=== PATIENT | male | born 1940 | race Hispanic/Latino ===

== ENCOUNTER 2017-09-01 11:36 | Inpatient (IN) | payer OTHER ==
[~2017-09-01] VITALS: Ht 167.6 cm; Wt 100.8 kg
[~2017-09-01 11:36] MED LIST: ACET1TAB12 PO; AMLO1CAP11 PO; AMLOD; BENAZ; DOCU-275 PO; LEVO500T2 PO
[2017-09-01 12:17] LABS: BASOPHILS % (AUTO) 0.6 % (0.0-5.0); EOSINOPHILS % (AUTO) 2.4 % (0.0-8.0); HEMATOCRIT 49.5 % (42-54); LYMPHOCYTES % (AUTO) 24.6 % (21.0-51.0); MEAN CORPUSCULAR HEMOGLOBIN 31.6 pg (27.0-33.0); MEAN CORPUSCULAR HGB CONC 33.8 g/dL (32.0-36.0); MEAN CORPUSCULAR VOLUME 93.5 fL (79-99); MONOCYTES % (AUTO) 8.1 % (3.0-13.0); NEUTROPHILS % (AUTO) 64.3 % (40.0-77.0); NUCLEATED RED BLOOD CELLS 0.1 % (0.0-0.19); PLATELET COUNT (AUTO) 210 K/uL (130-400); RED CELL DISTRIBUTION WIDTH 13.5 % (11.0-15.5); WHITE BLOOD COUNT (AUTO) 4.8 K/uL (4.8-10.8)
[2017-09-01] MEDS ORDERED: GUAIFENESIN-DM 200/20 MG 10 ML PO PRN (12:30)
[2017-09-01] MEDS ORDERED: MAG HYDROX/AL HYDROX/SIMETH ES 30 ML SUSP UDCUP PO PRN (12:30)
[2017-09-01] MEDS ORDERED: ACETAMINOPHEN 325 MG TAB PO PRN ×2 (12:30)
[2017-09-01] MEDS ORDERED: ACETAMINOPHEN-CODEINE 300/30MG TAB PO PRN (12:30)
[2017-09-01] MEDS ORDERED: LACTULOSE 20 GM/30 ML UDCUP PO PRN (12:30)
[2017-09-01] MEDS ORDERED: ONDANSETRON HCL 4 MG/2 ML VIAL IV PRN (12:30)
[2017-09-01] MEDS ORDERED: NITROGLYCERIN 0.4 MG SL TAB SL PRN (12:30)
[2017-09-01] MEDS ORDERED: MORPHINE SULFATE 2 MG/ML 1ML SYG IV PRN (12:30)
[2017-09-01] MEDS ORDERED: HYDRALAZINE HCL 20 MG/ML VIAL IV PRN (12:30)
[2017-09-01 12:34] LABS: INR 0.93 (0.85-1.15); PARTIAL THROMBOPLASTIN TIME 30.1 SEC (26.3-35.5); POTASSIUM 5.4 mmol/L (3.5-5.1); PROTHROMBIN TIME 9.8 SEC (9.6-11.6)
[2017-09-01 12:43] LABS: ALBUMIN 1.6 g/dL (3.5-5.0); BILIRUBIN,TOTAL 0.4 mg/dL (0.2-1.0); TOTAL PROTEIN, SERUM 5.4 g/dL (6.0-8.3)
[2017-09-01 13:12] LABS: APPEARANCE,URINE Cloudy (CLEAR); BILIRUBIN,URINE Negative (NEGATIVE); COLOR,URINE Dark Yellow (YELLOW); GLUCOSE, URINE (UA) Negative (NEGATIVE); KETONES,URINE Negative (NEGATIVE); LEUKOCYTE ESTERASE ,URINE Negative (NEGATIVE); NITRATE,URINE Negative (NEGATIVE); OCCULT BLOOD,URINE Large (NEGATIVE); PH,URINE 5.5 (5.0-8.0); PROTEIN,URINE >=1000 (NEGATIVE); UROBILINOGEN,URINE 0.2 mg/dL (0.2-1.0)
[2017-09-01 13:32] LABS: BACTERIA,URINE Moderate /HPF (None Seen); SQUAMOUS EPITHELIAL CELL,UR 0-2 /HPF (0-2); WBC,URINE 0-1 /HPF (0-1)
[2017-09-01 16:00] VITALS: BP 138/83
[2017-09-01] MEDS ORDERED: CHOLESTEROL PO (18:55)
[2017-09-01] MEDS ORDERED: FISH1CAP27 PO (18:55)
[2017-09-01] MEDS ORDERED: ASPI-555 PO (18:55)
[2017-09-01 19:45] VITALS: BP 132/80
[2017-09-01] MEDS ORDERED: ATOR10TA69 PO (21:54)
[2017-09-01] MEDS ORDERED: FURO20TA4 PO (21:54)
[2017-09-01 23:38] VITALS: BP 138/83
[2017-09-02 03:48] LABS: HEMATOCRIT 41.1 % (42-54); MEAN CORPUSCULAR HEMOGLOBIN 33.4 pg (27.0-33.0); MEAN CORPUSCULAR HGB CONC 35.9 g/dL (32.0-36.0); MEAN CORPUSCULAR VOLUME 92.9 fL (79-99); NUCLEATED RED BLOOD CELLS 0.1 % (0.0-0.19); PLATELET COUNT (AUTO) 179 K/uL (130-400); RED BLOOD CELL COUNT(AUTO) 4.43 MIL/uL (4.50-6.20); RED CELL DISTRIBUTION WIDTH 13.8 % (11.0-15.5); WHITE BLOOD COUNT (AUTO) 5.1 K/uL (4.8-10.8)
[2017-09-02 04:00] VITALS: BP 130/83
[2017-09-02 04:01] LABS: CREATININE 3.4 mg/dL (0.5-1.5); POTASSIUM 5.4 mmol/L (3.5-5.1)
[2017-09-02 04:55] LABS: ERYTHROCYTE SEDIMENTATION RATE 42 MM/HR (0-15)
[2017-09-02 08:00] VITALS: BP 138/76
[2017-09-02] MEDS ORDERED: AMLODIPINE BESYLATE 5 MG TAB PO SCH (09:00)
[2017-09-02] MEDS ORDERED: SODIUM POLYSTYRENE SULFONATE 15 GM/60 ML ML PO SCH (09:30)
[2017-09-02] MEDS: FISH OIL 1000 MG/CAP PO SCH (10:21)
[2017-09-02] MEDS: ASPIRIN 81 MG EC TAB PO SCH (10:22)
[2017-09-02] MEDS: FAMOTIDINE 20MG TAB 20 MG TAB PO SCH (10:22)
[2017-09-02] MEDS ORDERED: FUROSEMIDE 20 MG TABLET ONE (10:23)
[2017-09-02 11:00] VITALS: BP 132/80
[2017-09-02 16:00] VITALS: BP 149/89
[2017-09-02 19:35] VITALS: BP 139/81
[2017-09-02 23:20] VITALS: BP 144/81
[2017-09-03 03:35] VITALS: BP 150/82
[2017-09-03 05:55] LABS: CREATININE 3.3 mg/dL (0.5-1.5); POTASSIUM 4.4 mmol/L (3.5-5.1)
[2017-09-03 08:00] VITALS: BP 158/97
[2017-09-03] MEDS ORDERED: FUROSEMIDE 20 MG TABLET PO SCH (09:00)
[2017-09-03] MEDS: ASPIRIN 81 MG EC TAB PO SCH (10:16)
[2017-09-03] MEDS: FAMOTIDINE 20MG TAB 20 MG TAB PO SCH (10:16)
[2017-09-03] MEDS: FISH OIL 1000 MG/CAP PO SCH (10:16)
[2017-09-03] MEDS: FUROSEMIDE 10 MG/ML 2ML VIAL IV SCH ×2 (11:49→20:26)
[2017-09-03 12:00] VITALS: BP 145/86
[2017-09-03 15:51] VITALS: BP 135/82
[2017-09-03 19:25] VITALS: BP 143/83
[2017-09-03] MEDS: METOPROLOL TARTRATE 25 MG TAB PO SCH (20:26)
[2017-09-03 23:15] VITALS: BP 129/77
[2017-09-04 03:40] VITALS: BP 137/87
[2017-09-04 05:36] LABS: HEMATOCRIT 45.9 % (42-54); MEAN CORPUSCULAR HEMOGLOBIN 32.7 pg (27.0-33.0); MEAN CORPUSCULAR HGB CONC 35.2 g/dL (32.0-36.0); MEAN CORPUSCULAR VOLUME 92.9 fL (79-99); PLATELET COUNT (AUTO) 205 K/uL (130-400); RED BLOOD CELL COUNT(AUTO) 4.94 MIL/uL (4.50-6.20); RED CELL DISTRIBUTION WIDTH 13.4 % (11.0-15.5); WHITE BLOOD COUNT (AUTO) 4.8 K/uL (4.8-10.8)
[2017-09-04 05:43] LABS: INR 0.98 (0.85-1.15); PARTIAL THROMBOPLASTIN TIME 31.7 SEC (26.3-35.5); PROTHROMBIN TIME 10.3 SEC (9.6-11.6)
[2017-09-04 05:46] LABS: ALBUMIN 1.3 g/dL (3.5-5.0); MAGNESIUM 2.9 mg/dL (1.80-2.40); PHOSPHORUS 6.6 mg/dL (2.5-4.9); URIC ACID 8.8 mg/dL (2.6-7.2)
[2017-09-04 07:45] VITALS: BP 141/71
[2017-09-04] MEDS: METOPROLOL TARTRATE 25 MG TAB PO SCH ×2 (08:56→21:03)
[2017-09-04] MEDS: FOLIC ACID/VITAMIN B COMP W-C 1 MG CAPSULE PO SCH (08:56)
[2017-09-04] MEDS: FUROSEMIDE 10 MG/ML 2ML VIAL IV SCH ×2 (08:57→21:03)
[2017-09-04] MEDS: ASPIRIN 81 MG EC TAB PO SCH (08:57)
[2017-09-04] MEDS: FAMOTIDINE 20MG TAB 20 MG TAB PO SCH (08:57)
[2017-09-04] MEDS: FISH OIL 1000 MG/CAP PO SCH (08:57)
[2017-09-04 11:56] VITALS: BP 141/86
[2017-09-04 15:32] LABS: COLLECTION PERIOD,URINE 24 HR
[2017-09-04 15:33] LABS: TOTAL VOLUME 24HRS,URINE 400 mL; TPROTEIN TIMED,URINE 3251 mg/dL; TPROTEIN U,24HR CALC 13004 mg/24HR (0-165)
[2017-09-04 16:00] VITALS: BP 149/86
[2017-09-04 19:19] VITALS: BP 153/90
[2017-09-04 23:33] VITALS: BP 147/85
[2017-09-05 04:00] VITALS: BP 134/76
[2017-09-05 04:10] LABS: HEMATOCRIT 43.8 % (42-54); MEAN CORPUSCULAR HEMOGLOBIN 32.4 pg (27.0-33.0); MEAN CORPUSCULAR HGB CONC 34.9 g/dL (32.0-36.0); MEAN CORPUSCULAR VOLUME 92.9 fL (79-99); NUCLEATED RED BLOOD CELLS 0.1 % (0.0-0.19); PLATELET COUNT (AUTO) 197 K/uL (130-400); RED BLOOD CELL COUNT(AUTO) 4.72 MIL/uL (4.50-6.20); RED CELL DISTRIBUTION WIDTH 13.3 % (11.0-15.5); WHITE BLOOD COUNT (AUTO) 5.3 K/uL (4.8-10.8)
[2017-09-05 04:16] LABS: CREATININE 4.5 mg/dL (0.5-1.5); POTASSIUM 4.6 mmol/L (3.5-5.1)
[2017-09-05 08:00] VITALS: BP 151/89
[2017-09-05 08:03] LABS: HEPATITIS A ANTIBODY IGM Negative (Negative); HEPATITIS B CORE IGM Negative (Negative); HEPATITIS Bs ANTIGEN SCREEN P Negative (Negative)
[2017-09-05] MEDS: METOPROLOL TARTRATE 25 MG TAB PO SCH ×2 (09:10→21:09)
[2017-09-05] MEDS: FOLIC ACID/VITAMIN B COMP W-C 1 MG CAPSULE PO SCH (09:10)
[2017-09-05] MEDS: FISH OIL 1000 MG/CAP PO SCH (09:10)
[2017-09-05] MEDS: FAMOTIDINE 20MG TAB 20 MG TAB PO SCH (09:10)
[2017-09-05] MEDS: ASPIRIN 81 MG EC TAB PO SCH (09:11)
[2017-09-05] MEDS: FUROSEMIDE 10 MG/ML 2ML VIAL IV SCH ×2 (09:11→21:09)
[2017-09-05 12:00] VITALS: BP 141/77
[2017-09-05 16:00] VITALS: BP 143/78
[2017-09-05 19:00] VITALS: BP 150/88
[2017-09-05 23:00] VITALS: BP 140/82
[2017-09-06] VITALS (12 sets, daily range): BP systolic 127–142; BP diastolic 76–93
[2017-09-06 04:26] LABS: INR 0.96 (0.85-1.15); PARTIAL THROMBOPLASTIN TIME 32.4 SEC (26.3-35.5); PROTHROMBIN TIME 10.1 SEC (9.6-11.6)
[2017-09-06 04:35] LABS: ALBUMIN 1.1 g/dL (3.5-5.0); BILIRUBIN,TOTAL 0.3 mg/dL (0.2-1.0); CREATININE 4.9 mg/dL (0.5-1.5); POTASSIUM 4.5 mmol/L (3.5-5.1); TOTAL PROTEIN, SERUM 4.4 g/dL (6.0-8.3)
[2017-09-06] MEDS: METOPROLOL TARTRATE 25 MG TAB PO SCH ×2 (07:38→21:14)
[2017-09-06] MEDS: FUROSEMIDE 10 MG/ML 2ML VIAL IV SCH ×2 (09:30→21:12)
[2017-09-06] MEDS: FAMOTIDINE 20MG TAB 20 MG TAB PO SCH (17:07)
[2017-09-06] MEDS: FOLIC ACID/VITAMIN B COMP W-C 1 MG CAPSULE PO SCH (17:07)
[2017-09-06] MEDS: FISH OIL 1000 MG/CAP PO SCH (17:07)
[2017-09-07] VITALS: BP 122/65
[2017-09-07 04:00] VITALS: BP 146/80
[2017-09-07 04:06] LABS: HEMATOCRIT 43.1 % (42-54); MEAN CORPUSCULAR HEMOGLOBIN 32.8 pg (27.0-33.0); MEAN CORPUSCULAR HGB CONC 35.7 g/dL (32.0-36.0); MEAN CORPUSCULAR VOLUME 91.8 fL (79-99); NUCLEATED RED BLOOD CELLS 0.1 % (0.0-0.19); PLATELET COUNT (AUTO) 225 K/uL (130-400); RED CELL DISTRIBUTION WIDTH 13.3 % (11.0-15.5); WHITE BLOOD COUNT (AUTO) 5.2 K/uL (4.8-10.8)
[2017-09-07 04:16] LABS: POTASSIUM 4.7 mmol/L (3.5-5.1)
[2017-09-07 08:00] VITALS: BP 154/81
[2017-09-07] MEDS: FOLIC ACID/VITAMIN B COMP W-C 1 MG CAPSULE PO SCH (09:10)
[2017-09-07] MEDS: FISH OIL 1000 MG/CAP PO SCH (09:11)
[2017-09-07] MEDS: METOPROLOL TARTRATE 25 MG TAB PO SCH ×2 (09:11→21:00)
[2017-09-07] MEDS: FAMOTIDINE 20MG TAB 20 MG TAB PO SCH (09:12)
[2017-09-07] MEDS: FUROSEMIDE 10 MG/ML 2ML VIAL IV SCH ×2 (09:12→21:30)
[2017-09-07 11:00] VITALS: BP 154/83
[2017-09-07 16:00] VITALS: BP 142/84
[2017-09-07 20:00] VITALS: BP 144/82
[2017-09-08] VITALS (7 sets, daily range): BP systolic 136–158; BP diastolic 77–91
[2017-09-08] MEDS: METOPROLOL TARTRATE 25 MG TAB PO SCH ×2 (08:33→20:26)
[2017-09-08] MEDS: FISH OIL 1000 MG/CAP PO SCH (08:33)
[2017-09-08] MEDS: FOLIC ACID/VITAMIN B COMP W-C 1 MG CAPSULE PO SCH (08:33)
[2017-09-08] MEDS: FAMOTIDINE 20MG TAB 20 MG TAB PO SCH (08:34)
[2017-09-08] MEDS: FUROSEMIDE 10 MG/ML 2ML VIAL IV SCH (08:34)
[2017-09-08] MEDS: PREDNISONE 20 MG TABLET PO SCH ×2 (14:26→20:26)
[2017-09-08] MEDS: FUROSEMIDE 40 MG TABLET PO SCH (18:01)
[2017-09-09 03:24] LABS: HEMATOCRIT 44.2 % (42-54); MEAN CORPUSCULAR HEMOGLOBIN 33.1 pg (27.0-33.0); MEAN CORPUSCULAR HGB CONC 36.5 g/dL (32.0-36.0); MEAN CORPUSCULAR VOLUME 90.8 fL (79-99); PLATELET COUNT (AUTO) 231 K/uL (130-400); RED BLOOD CELL COUNT(AUTO) 4.87 MIL/uL (4.50-6.20); RED CELL DISTRIBUTION WIDTH 13.4 % (11.0-15.5); WHITE BLOOD COUNT (AUTO) 2.8 K/uL (4.8-10.8)
[2017-09-09 03:34] LABS: CREATININE 5.9 mg/dL (0.5-1.5); POTASSIUM 4.8 mmol/L (3.5-5.1)
[2017-09-09 03:42] LABS: LYMPHOCYTES % (MANUAL) 16 % (22-44); SEGMENTED NEUTROPHILS % 84 % (40-70)
[2017-09-09 03:43] LABS: MAN.DIFF COMMENT-IMPRESSION MANUAL DIFFERENTIAL; PLATELET MORPHOLOGY COMMENT ADEQUATE
[2017-09-09 04:45] VITALS: BP 131/69
[2017-09-09 08:49] VITALS: BP 155/85
[2017-09-09] MEDS: FISH OIL 1000 MG/CAP PO SCH (09:49)
[2017-09-09] MEDS: PREDNISONE 20 MG TABLET PO SCH ×2 (09:49→20:22)
[2017-09-09] MEDS: FOLIC ACID/VITAMIN B COMP W-C 1 MG CAPSULE PO SCH (09:49)
[2017-09-09] MEDS: METOPROLOL TARTRATE 25 MG TAB PO SCH ×2 (09:49→20:22)
[2017-09-09] MEDS: FAMOTIDINE 20MG TAB 20 MG TAB PO SCH (09:49)
[2017-09-09] MEDS: FUROSEMIDE 40 MG TABLET PO SCH ×2 (09:50→19:28)
[2017-09-09 11:27] VITALS: BP 146/72
[2017-09-09 16:10] VITALS: BP 144/81
[2017-09-09 19:55] VITALS: BP 137/76
[2017-09-09 23:05] VITALS: BP 143/83
[2017-09-10 03:54] VITALS: BP 132/73
[2017-09-10 05:55] LABS: BASOPHILS % (AUTO) 0.1 % (0.0-5.0); HEMATOCRIT 41.8 % (42-54); MEAN CORPUSCULAR HEMOGLOBIN 31.7 pg (27.0-33.0); MEAN CORPUSCULAR HGB CONC 34.3 g/dL (32.0-36.0); MEAN CORPUSCULAR VOLUME 92.5 fL (79-99); MONOCYTES % (AUTO) 1.2 % (3.0-13.0); NEUTROPHILS % (AUTO) 87.7 % (40.0-77.0); PLATELET COUNT (AUTO) 242 K/uL (130-400); RED BLOOD CELL COUNT(AUTO) 4.52 MIL/uL (4.50-6.20); RED CELL DISTRIBUTION WIDTH 13.5 % (11.0-15.5); WHITE BLOOD COUNT (AUTO) 6.6 K/uL (4.8-10.8)
[2017-09-10 06:04] LABS: CREATININE 7.4 mg/dL (0.5-1.5); POTASSIUM 4.9 mmol/L (3.5-5.1)
[2017-09-10 07:54] VITALS: BP 140/75
[2017-09-10] MEDS: PREDNISONE 20 MG TABLET PO SCH ×2 (08:01→20:25)
[2017-09-10] MEDS: METOPROLOL TARTRATE 25 MG TAB PO SCH ×2 (08:02→20:25)
[2017-09-10] MEDS: FISH OIL 1000 MG/CAP PO SCH (08:02)
[2017-09-10] MEDS: FAMOTIDINE 20MG TAB 20 MG TAB PO SCH (08:02)
[2017-09-10] MEDS: FUROSEMIDE 40 MG TABLET PO SCH ×2 (08:02→16:41)
[2017-09-10] MEDS: FOLIC ACID/VITAMIN B COMP W-C 1 MG CAPSULE PO SCH (08:02)
[2017-09-10 11:16] VITALS: BP 140/79
[2017-09-10 16:19] VITALS: BP 132/70
[2017-09-10 20:00] VITALS: BP 140/76
[2017-09-11] VITALS: BP 120/68
[2017-09-11 04:00] VITALS: BP 118/70
[2017-09-11 05:10] LABS: HEMATOCRIT 40.5 % (42-54); MEAN CORPUSCULAR HEMOGLOBIN 32.8 pg (27.0-33.0); MEAN CORPUSCULAR HGB CONC 35.4 g/dL (32.0-36.0); MEAN CORPUSCULAR VOLUME 92.7 fL (79-99); PLATELET COUNT (AUTO) 255 K/uL (130-400); RED BLOOD CELL COUNT(AUTO) 4.37 MIL/uL (4.50-6.20); RED CELL DISTRIBUTION WIDTH 13.5 % (11.0-15.5); WHITE BLOOD COUNT (AUTO) 7.3 K/uL (4.8-10.8)
[2017-09-11 05:23] LABS: INR 0.97 (0.85-1.15); PARTIAL THROMBOPLASTIN TIME 31.2 SEC (26.3-35.5); PROTHROMBIN TIME 10.2 SEC (9.6-11.6)
[2017-09-11 05:34] LABS: PHOSPHORUS 11.6 mg/dL (2.5-4.9); POTASSIUM 5.1 mmol/L (3.5-5.1)
[2017-09-11 05:36] LABS: CREATININE 8.6 mg/dL (0.5-1.5)
[2017-09-11 05:44] LABS: LYMPHOCYTES % (MANUAL) 9 % (22-44); SEGMENTED NEUTROPHILS % 91 % (40-70)
[2017-09-11 05:45] LABS: MAN.DIFF COMMENT-IMPRESSION MANUAL DIFFERENTIAL
[2017-09-11 08:00] VITALS: BP 145/73
[2017-09-11] MEDS: FAMOTIDINE 20MG TAB 20 MG TAB PO SCH (08:46)
[2017-09-11] MEDS: FISH OIL 1000 MG/CAP PO SCH (08:46)
[2017-09-11] MEDS: FUROSEMIDE 40 MG TABLET PO SCH ×2 (08:47→17:29)
[2017-09-11] MEDS: PREDNISONE 20 MG TABLET PO SCH ×2 (08:47→20:28)
[2017-09-11] MEDS: METOPROLOL TARTRATE 25 MG TAB PO SCH ×2 (08:47→20:29)
[2017-09-11] MEDS: FOLIC ACID/VITAMIN B COMP W-C 1 MG CAPSULE PO SCH (08:47)
[2017-09-11] MEDS: ONDANSETRON HCL MDV 20ML 2 MG/ML VIAL IV PRN (10:34)
[2017-09-11 11:21] VITALS: BP 139/71
[2017-09-11 16:00] VITALS: BP 133/78
[2017-09-11 20:00] VITALS: BP 134/66
[2017-09-12] VITALS (14 sets, daily range): BP systolic 134–166; BP diastolic 67–97
[2017-09-12 03:58] LABS: HEMATOCRIT 38.5 % (42-54); MEAN CORPUSCULAR HEMOGLOBIN 32.4 pg (27.0-33.0); MEAN CORPUSCULAR HGB CONC 35.4 g/dL (32.0-36.0); MEAN CORPUSCULAR VOLUME 91.6 fL (79-99); PLATELET COUNT (AUTO) 226 K/uL (130-400); RED BLOOD CELL COUNT(AUTO) 4.21 MIL/uL (4.50-6.20); RED CELL DISTRIBUTION WIDTH 13.2 % (11.0-15.5); WHITE BLOOD COUNT (AUTO) 5.7 K/uL (4.8-10.8)
[2017-09-12 04:04] LABS: PARTIAL THROMBOPLASTIN TIME 30.8 SEC (26.3-35.5); PROTHROMBIN TIME 10.5 SEC (9.6-11.6)
[2017-09-12 04:06] LABS: BAND NEUTROPHILS % (MANUAL) 3 % (0-2); EOSINOPHILS % (MANUAL) 1 % (1-6); LYMPHOCYTES % (MANUAL) 4 % (22-44); MAN.DIFF COMMENT-IMPRESSION MANUAL DIFFERENTIAL; PLATELET MORPHOLOGY COMMENT ADEQUATE; SEGMENTED NEUTROPHILS % 92 % (40-70)
[2017-09-12 04:20] LABS: ALBUMIN 1.5 g/dL (3.5-5.0); BILIRUBIN,TOTAL 0.4 mg/dL (0.2-1.0); POTASSIUM 5.9 mmol/L (3.5-5.1); TOTAL PROTEIN, SERUM 4.7 g/dL (6.0-8.3)
[2017-09-12 04:22] LABS: CREATININE 9.8 mg/dL (0.5-1.5)
[2017-09-12] MEDS ORDERED: PANTOPRAZOLE 40 MG/VIAL IVP SCH (09:00)
[2017-09-12] MEDS: METOPROLOL TARTRATE 25 MG TAB PO SCH ×2 (09:57→20:02)
[2017-09-12] MEDS: FISH OIL 1000 MG/CAP PO SCH (09:57)
[2017-09-12] MEDS: FUROSEMIDE 40 MG TABLET PO SCH ×2 (09:58→17:00)
[2017-09-12] MEDS: PREDNISONE 20 MG TABLET PO SCH ×2 (09:59→20:02)
[2017-09-12] MEDS: PANTOPRAZOLE SODIUM 40 MG TABLET.DR PO SCH (09:59)
[2017-09-12] MEDS: FOLIC ACID/VITAMIN B COMP W-C 1 MG CAPSULE PO SCH (09:59)
[2017-09-12] MEDS ORDERED: SODIUM BICARB 50MEQ 50ML VIAL ONE (14:43)
[2017-09-12] MEDS ORDERED: LIDOCAINE HCL 1% MDV 50ML VIAL ONE (14:44)
[2017-09-12] MEDS ORDERED: ISOVUE-370 50ML VIAL IV ONE (14:44)
[2017-09-12] MEDS ORDERED: LIDOCAINE HCL 2% 20ML ONE (14:46)
[2017-09-12] MEDS ORDERED: SODIUM CHLORIDE 0.9% 1000ML 1,000 ML IV PRN (16:45)
[2017-09-12] MEDS ORDERED: 0.9% SODIUM CHLORIDE 250 ML IV BAG IV PRN (16:45)
[2017-09-12] MEDS ORDERED: ALBUMIN (HUMAN) 25% 100 ML IV PRN (16:45)
[2017-09-12 17:00] LABS: HEMATOCRIT 38.8 % (42-54)
[2017-09-12 17:14] LABS: HEMOGLOBIN A1C 5.9 % (4.0-6.0)
[2017-09-12 17:22] LABS: ALBUMIN 1.5 g/dL (3.5-5.0)
[2017-09-12] MEDS: HEPARIN SODIUM 5000UNIT/ML 1ML VIAL IJ PRN (18:22)
[2017-09-12] MEDS: ONDANSETRON HCL MDV 20ML 2 MG/ML VIAL IV PRN (20:02)
[2017-09-13 04:05] VITALS: BP 155/90
[2017-09-13 04:28] LABS: HEMATOCRIT 37.6 % (42-54); MEAN CORPUSCULAR HEMOGLOBIN 32.9 pg (27.0-33.0); MEAN CORPUSCULAR HGB CONC 35.9 g/dL (32.0-36.0); MEAN CORPUSCULAR VOLUME 91.7 fL (79-99); PLATELET COUNT (AUTO) 193 K/uL (130-400); RED CELL DISTRIBUTION WIDTH 13.1 % (11.0-15.5); WHITE BLOOD COUNT (AUTO) 5.9 K/uL (4.8-10.8)
[2017-09-13 04:53] LABS: ALBUMIN 1.4 g/dL (3.5-5.0); BILIRUBIN,TOTAL 0.5 mg/dL (0.2-1.0); POTASSIUM 5.8 mmol/L (3.5-5.1); TOTAL PROTEIN, SERUM 4.6 g/dL (6.0-8.3)
[2017-09-13 05:02] LABS: CREATININE 9.8 mg/dL (0.5-1.5)
[2017-09-13] MEDS: PANTOPRAZOLE SODIUM 40 MG TABLET.DR PO SCH (06:37)
[2017-09-13 08:00] VITALS: BP 142/82
[2017-09-13] MEDS: FOLIC ACID/VITAMIN B COMP W-C 1 MG CAPSULE PO SCH (10:19)
[2017-09-13] MEDS: PREDNISONE 20 MG TABLET PO SCH ×2 (10:19→20:48)
[2017-09-13] MEDS: METOPROLOL TARTRATE 25 MG TAB PO SCH ×2 (10:19→20:50)
[2017-09-13] MEDS: FUROSEMIDE 40 MG TABLET PO SCH ×2 (10:19→16:53)
[2017-09-13] MEDS: FISH OIL 1000 MG/CAP PO SCH (10:19)
[2017-09-13] MEDS: ONDANSETRON HCL MDV 20ML 2 MG/ML VIAL IV PRN ×2 (10:24→23:03)
[2017-09-13 11:47] VITALS: BP 152/90
[2017-09-13 16:00] VITALS: BP 153/79
[2017-09-13 20:45] VITALS: BP 144/77
[2017-09-13 23:45] VITALS: BP 141/67
[2017-09-14 03:20] VITALS: BP 153/77
[2017-09-14 04:30] LABS: HEMATOCRIT 35.9 % (42-54); MEAN CORPUSCULAR HEMOGLOBIN 32.4 pg (27.0-33.0); MEAN CORPUSCULAR HGB CONC 35.3 g/dL (32.0-36.0); MEAN CORPUSCULAR VOLUME 91.8 fL (79-99); PLATELET COUNT (AUTO) 144 K/uL (130-400); RED BLOOD CELL COUNT(AUTO) 3.91 MIL/uL (4.50-6.20); RED CELL DISTRIBUTION WIDTH 13.4 % (11.0-15.5); WHITE BLOOD COUNT (AUTO) 4.2 K/uL (4.8-10.8)
[2017-09-14 04:44] LABS: POTASSIUM 5.8 mmol/L (3.5-5.1)
[2017-09-14 04:48] LABS: CREATININE 8.6 mg/dL (0.5-1.5)
[2017-09-14 07:35] LABS: HEPATITIS Bs ANTIGEN SCREEN P Negative (Negative)
[2017-09-14 08:00] VITALS: BP 132/69
[2017-09-14] MEDS ORDERED: ENOXAPARIN SODIUM 30 MG/0.3 ML SQ SCH (09:00)
[2017-09-14 12:00] VITALS: BP_SYST 151; BP_SYST 152; BP_DIAS 74; BP_DIAS 75
[2017-09-14] MEDS: METOPROLOL TARTRATE 25 MG TAB PO SCH (13:19)
[2017-09-14] MEDS: FISH OIL 1000 MG/CAP PO SCH (13:19)
[2017-09-14] MEDS: FOLIC ACID/VITAMIN B COMP W-C 1 MG CAPSULE PO SCH (13:19)
[2017-09-14] MEDS: PREDNISONE 20 MG TABLET PO SCH ×2 (13:20→20:09)
[2017-09-14] MEDS: FUROSEMIDE 40 MG TABLET PO SCH ×2 (13:20→17:15)
[2017-09-14] MEDS: PANTOPRAZOLE SODIUM 40 MG TABLET.DR PO SCH (13:20)
[2017-09-14 16:00] VITALS: BP 147/77
[2017-09-14 19:35] VITALS: BP 139/76
[2017-09-14 23:18] VITALS: BP 97/78
[2017-09-15 03:39] LABS: BASOPHILS % (AUTO) 0.1 % (0.0-5.0); HEMATOCRIT 33.6 % (42-54); LYMPHOCYTES % (AUTO) 8.5 % (21.0-51.0); MEAN CORPUSCULAR HEMOGLOBIN 33.6 pg (27.0-33.0); MEAN CORPUSCULAR HGB CONC 36.8 g/dL (32.0-36.0); MEAN CORPUSCULAR VOLUME 91.3 fL (79-99); NEUTROPHILS % (AUTO) 87.4 % (40.0-77.0); PLATELET COUNT (AUTO) 113 K/uL (130-400); RED BLOOD CELL COUNT(AUTO) 3.68 MIL/uL (4.50-6.20); RED CELL DISTRIBUTION WIDTH 13.4 % (11.0-15.5); WHITE BLOOD COUNT (AUTO) 5.2 K/uL (4.8-10.8)
[2017-09-15 03:48] VITALS: BP 136/67
[2017-09-15 03:49] LABS: POTASSIUM 5.5 mmol/L (3.5-5.1)
[2017-09-15 04:25] LABS: CREATININE 8.1 mg/dL (0.5-1.5)
[2017-09-15 08:00] VITALS: BP 157/83
[2017-09-15] MEDS ORDERED: PHARMACY COMMUNICATION MISC SCH (09:00)
[2017-09-15] MEDS: PREDNISONE 20 MG TABLET PO SCH ×2 (10:59→21:34)
[2017-09-15] MEDS: FISH OIL 1000 MG/CAP PO SCH (10:59)
[2017-09-15] MEDS: PANTOPRAZOLE SODIUM 40 MG TABLET.DR PO SCH (10:59)
[2017-09-15] MEDS: FOLIC ACID/VITAMIN B COMP W-C 1 MG CAPSULE PO SCH (10:59)
[2017-09-15 12:00] VITALS: BP 163/87
[2017-09-15] MEDS: FUROSEMIDE 40 MG TABLET PO SCH ×2 (13:43→17:16)
[2017-09-15 16:00] VITALS: BP 147/81
[2017-09-15 19:00] VITALS: BP 144/78
[2017-09-16] VITALS: BP 132/73
[2017-09-16 04:00] VITALS: BP 145/69
[2017-09-16 04:28] LABS: HEMATOCRIT 36.5 % (42-54); MEAN CORPUSCULAR HEMOGLOBIN 32.3 pg (27.0-33.0); MEAN CORPUSCULAR HGB CONC 35.2 g/dL (32.0-36.0); MEAN CORPUSCULAR VOLUME 91.7 fL (79-99); PLATELET COUNT (AUTO) 122 K/uL (130-400); RED BLOOD CELL COUNT(AUTO) 3.98 MIL/uL (4.50-6.20); RED CELL DISTRIBUTION WIDTH 13.2 % (11.0-15.5); WHITE BLOOD COUNT (AUTO) 7.3 K/uL (4.8-10.8)
[2017-09-16 04:55] LABS: PHOSPHORUS 10.7 mg/dL (2.5-4.9); POTASSIUM 5.7 mmol/L (3.5-5.1)
[2017-09-16 05:05] LABS: CREATININE 8.8 mg/dL (0.5-1.5)
[2017-09-16 08:00] VITALS: BP 161/99
[2017-09-16] MEDS: PANTOPRAZOLE SODIUM 40 MG TABLET.DR PO SCH (08:04)
[2017-09-16] MEDS: AMLODIPINE BESYLATE 5 MG TAB PO SCH (09:00)
[2017-09-16] MEDS ORDERED: AMLODIPINE BESYLATE 5 MG TAB PO ONE (09:36)
[2017-09-16] MEDS: PREDNISONE 20 MG TABLET PO SCH ×2 (09:39→20:52)
[2017-09-16] MEDS: FISH OIL 1000 MG/CAP PO SCH (09:39)
[2017-09-16] MEDS: FUROSEMIDE 40 MG TABLET PO SCH ×2 (09:39→18:00)
[2017-09-16] MEDS: FOLIC ACID/VITAMIN B COMP W-C 1 MG CAPSULE PO SCH (09:39)
[2017-09-16 12:00] VITALS: BP 158/85
[2017-09-16 16:00] VITALS: BP 146/72
[2017-09-16 19:57] VITALS: BP 153/79
[2017-09-17] VITALS (7 sets, daily range): BP systolic 130–161; BP diastolic 67–91
[2017-09-17] MEDS: PANTOPRAZOLE SODIUM 40 MG TABLET.DR PO SCH (08:47)
[2017-09-17] MEDS: FISH OIL 1000 MG/CAP PO SCH (08:47)
[2017-09-17] MEDS: PREDNISONE 20 MG TABLET PO SCH ×2 (08:47→20:26)
[2017-09-17] MEDS: FOLIC ACID/VITAMIN B COMP W-C 1 MG CAPSULE PO SCH (08:47)
[2017-09-17] MEDS: AMLODIPINE BESYLATE 5 MG TAB PO SCH (08:47)
[2017-09-17] MEDS: FUROSEMIDE 40 MG TABLET PO SCH ×2 (08:48→18:37)
[2017-09-18] VITALS (7 sets, daily range): BP systolic 126–165; BP diastolic 72–89
[2017-09-18] MEDS: PANTOPRAZOLE SODIUM 40 MG TABLET.DR PO SCH (05:30)
[2017-09-18 05:53] LABS: HEMATOCRIT 36.4 % (42-54); MEAN CORPUSCULAR HEMOGLOBIN 32.2 pg (27.0-33.0); MEAN CORPUSCULAR VOLUME 92.1 fL (79-99); PLATELET COUNT (AUTO) 111 K/uL (130-400); RED BLOOD CELL COUNT(AUTO) 3.95 MIL/uL (4.50-6.20); RED CELL DISTRIBUTION WIDTH 12.9 % (11.0-15.5); WHITE BLOOD COUNT (AUTO) 8.8 K/uL (4.8-10.8)
[2017-09-18 06:14] LABS: PHOSPHORUS 9.2 mg/dL (2.5-4.9); POTASSIUM 5.5 mmol/L (3.5-5.1)
[2017-09-18 06:24] LABS: CREATININE 8.5 mg/dL (0.5-1.5)
[2017-09-18] MEDS ORDERED: AMLO5TAB4 PO (07:36)
[2017-09-18 07:49] LABS: LYMPHOCYTES % (MANUAL) 6 % (22-44); MAN.DIFF COMMENT-IMPRESSION MANUAL DIFFERENTIAL; MONOCYTES % (MANUAL) 2 % (2-9); PLATELET MORPHOLOGY COMMENT SLIGHTLY DECREASED; SEGMENTED NEUTROPHILS % 92 % (40-70)
[2017-09-18] MEDS: PREDNISONE 20 MG TABLET PO SCH ×2 (09:30→21:03)
[2017-09-18] MEDS: FISH OIL 1000 MG/CAP PO SCH (09:30)
[2017-09-18] MEDS: FOLIC ACID/VITAMIN B COMP W-C 1 MG CAPSULE PO SCH (09:30)
[2017-09-18] MEDS: FUROSEMIDE 40 MG TABLET PO SCH ×2 (09:30→15:13)
[2017-09-18] MEDS: AMLODIPINE BESYLATE 5 MG TAB PO SCH (09:30)
[2017-09-18] MEDS ORDERED: FUROSEMIDE 80 MG TABLET ONE (15:04)
[2017-09-18] MEDS: CALCIUM ACETATE 667 MG CAPSULE PO SCH (15:11)
[2017-09-19 03:00] VITALS: BP 149/80
[2017-09-19 08:00] VITALS: BP 145/79
[2017-09-19] MEDS: PREDNISONE 20 MG TABLET PO SCH ×2 (09:55→20:33)
[2017-09-19] MEDS: FUROSEMIDE 40 MG TABLET PO SCH ×2 (09:56→16:20)
[2017-09-19] MEDS: PANTOPRAZOLE SODIUM 40 MG TABLET.DR PO SCH (10:00)
[2017-09-19] MEDS: CALCIUM ACETATE 667 MG CAPSULE PO SCH ×2 (10:01→10:18)
[2017-09-19] MEDS: FOLIC ACID/VITAMIN B COMP W-C 1 MG CAPSULE PO SCH (10:19)
[2017-09-19] MEDS: AMLODIPINE BESYLATE 5 MG TAB PO SCH (10:19)
[2017-09-19] MEDS: FISH OIL 1000 MG/CAP PO SCH (10:19)
[2017-09-19 12:00] VITALS: BP 136/73
[2017-09-19] MEDS: HEPARIN SODIUM 5000UNIT/ML 1ML VIAL IJ PRN (12:38)
[2017-09-19 16:00] VITALS: BP 140/67
[2017-09-19 19:00] VITALS: BP 145/70
[2017-09-19 23:00] VITALS: BP 147/70
[2017-09-20 03:00] VITALS: BP 136/79
[2017-09-20 04:40] LABS: HEMATOCRIT 35.4 % (42-54); MEAN CORPUSCULAR HEMOGLOBIN 32.8 pg (27.0-33.0); MEAN CORPUSCULAR HGB CONC 35.7 g/dL (32.0-36.0); PLATELET COUNT (AUTO) 113 K/uL (130-400); RED BLOOD CELL COUNT(AUTO) 3.85 MIL/uL (4.50-6.20); RED CELL DISTRIBUTION WIDTH 13.1 % (11.0-15.5); WHITE BLOOD COUNT (AUTO) 8.5 K/uL (4.8-10.8)
[2017-09-20 04:51] LABS: ALBUMIN 1.5 g/dL (3.5-5.0); BILIRUBIN,TOTAL 0.5 mg/dL (0.2-1.0); CREATININE 7.5 mg/dL (0.5-1.5); POTASSIUM 5.4 mmol/L (3.5-5.1); TOTAL PROTEIN, SERUM 4.5 g/dL (6.0-8.3)
[2017-09-20] MEDS: PANTOPRAZOLE SODIUM 40 MG TABLET.DR PO SCH (06:36)
[2017-09-20 07:35] VITALS: BP 148/76
[2017-09-20] MEDS: FOLIC ACID/VITAMIN B COMP W-C 1 MG CAPSULE PO SCH (08:54)
[2017-09-20] MEDS: CALCIUM ACETATE 667 MG CAPSULE PO SCH ×2 (08:54→16:54)
[2017-09-20] MEDS: FUROSEMIDE 40 MG TABLET PO SCH ×2 (08:54→16:55)
[2017-09-20] MEDS: PREDNISONE 20 MG TABLET PO SCH (08:54)
[2017-09-20] MEDS: AMLODIPINE BESYLATE 5 MG TAB PO SCH (08:54)
[2017-09-20] MEDS: FISH OIL 1000 MG/CAP PO SCH (08:55)
[2017-09-20 11:00] VITALS: BP 151/80
[2017-09-20 15:00] VITALS: BP 139/73
== END 2017-09-20 18:13 | disposition home or self-care (01) | DRG 673 ==
LOC: EDH 11:36 → EDHIP 11:37 → OBSVTOIN 11:37 → EDHIP 14:09 → 3AH 16:12
PROVIDERS: ADMIT Internal Medicine; ATTEND Internal Medicine
PROC: 0TB03ZX Excision of Right Kidney, Percutaneous Approach, Diagnostic (ICD-10-PCS; principal; 2017-09-06)
PROC: 0TB13ZX Excision of Left Kidney, Percutaneous Approach, Diagnostic (ICD-10-PCS; 2017-09-06)
PROC: 0JH63XZ Insertion of Tunneled Vascular Access Device into Chest Subcutaneous Tissue and Fascia, Percutaneous Approach (ICD-10-PCS; 2017-09-12)
PROC: 02H633Z Insertion of Infusion Device into Right Atrium, Percutaneous Approach (ICD-10-PCS; 2017-09-12)
PROC: 5A1D70Z Performance of Urinary Filtration, Intermittent, Less than 6 Hours Per Day (ICD-10-PCS; 2017-09-12)
PROC: B244ZZZ Ultrasonography of Right Heart (ICD-10-PCS; 2017-09-12)
PROC: 5A1D70Z Performance of Urinary Filtration, Intermittent, Less than 6 Hours Per Day (ICD-10-PCS; 2017-09-13)
PROC: 5A1D70Z Performance of Urinary Filtration, Intermittent, Less than 6 Hours Per Day (ICD-10-PCS; 2017-09-14)
PROC: 5A1D70Z Performance of Urinary Filtration, Intermittent, Less than 6 Hours Per Day (ICD-10-PCS; 2017-09-16)
PROC: 5A1D70Z Performance of Urinary Filtration, Intermittent, Less than 6 Hours Per Day (ICD-10-PCS; 2017-09-19)
DX: N17.0 Acute kidney failure with tubular necrosis (principal); E43 Unspecified severe protein-calorie malnutrition; R18.8 Other ascites; E87.5 Hyperkalemia; E87.70 Fluid overload, unspecified; E87.1 Hypo-osmolality and hyponatremia; E87.8 Other disorders of electrolyte and fluid balance, not elsewhere classified; I12.0 Hypertensive chronic kidney disease with stage 5 chronic kidney disease or end stage renal disease; D64.9 Anemia, unspecified; E78.5 Hyperlipidemia, unspecified; E66.9 Obesity, unspecified; N18.6 End stage renal disease; D72.819 Decreased white blood cell count, unspecified; I73.9 Peripheral vascular disease, unspecified; N50.89 Other specified disorders of the male genital organs; Z79.82 Long term (current) use of aspirin; Z79.899 Other long term (current) drug therapy; Z99.2 Dependence on renal dialysis; Z68.35 Body mass index [BMI] 35.0-35.9, adult; Z90.49 Acquired absence of other specified parts of digestive tract
CPT/HCPCS: 36415; 36558; 50200; 71045; 71046; 76700; 76770; 76942; 77001; 80048; 80053; 80061; 80069; 80074; 81001; 82040; 82306; 82550; 82728; 83036; 83540; 83550; 83735; 84100; 84156; 84166; 84443; 84520; 84550; 85014; 85018; 85025; 85027; 85610; 85651; 85730; 86038; 86160; 86255; 86325; 86334; 86701; 86704; 86706; 87088; 87340; 87390; 90935; 93005; 93306; 93970; 93971; 97039; C1750; C9113; J0360; J1644; J1940; J3490; J7030; Q9967

== ENCOUNTER 2018-02-23 06:54 | Day surgery (SDC) | payer OTHER ==
[~2018-02-23] VITALS: Ht 172.7 cm; Wt 75.6 kg
[~2018-02-23 06:54] MED LIST changes: -ACET1TAB12 PO; -AMLO1CAP11 PO; -AMLOD; +ATOR10TA69 PO; -BENAZ; -DOCU-275 PO; +FISH1CAP27 PO; -LEVO500T2 PO
[2018-02-23 08:10] VITALS: BP 136/80
[2018-02-23] MEDS ORDERED: PRED10TA23 PO (08:27)
[2018-02-23] MEDS ORDERED: SODIUM CHLORIDE 0.9% 1000ML 1,000 ML IV ONE (08:30)
[2018-02-23 09:28] VITALS: BP 117/75
[2018-02-23 09:34] VITALS: BP 118/70
[2018-02-23 09:39] VITALS: BP 127/73
[2018-02-23 09:43] VITALS: BP 130/74
== END 2018-02-23 10:00 | disposition home or self-care (01) ==
LOC: ENDO 06:54 → DAH 06:54 → ENDO 10:00
PROVIDERS: ATTEND Internal Medicine Gastroenterology
DX: D12.2 Benign neoplasm of ascending colon (principal); D12.3 Benign neoplasm of transverse colon; K62.1 Rectal polyp; K29.50 Unspecified chronic gastritis without bleeding; K57.30 Diverticulosis of large intestine without perforation or abscess without bleeding; D64.9 Anemia, unspecified; I10 Essential (primary) hypertension; Z79.899 Other long term (current) drug therapy; Z90.49 Acquired absence of other specified parts of digestive tract; Z98.890 Other specified postprocedural states; E78.2 Mixed hyperlipidemia; K29.00 Acute gastritis without bleeding
CPT/HCPCS: 36415; 43239; 45380; 45385; 84132; 88305; 93005; A4606; J7030

== ENCOUNTER 2025-03-20 11:07 | Emergency (ER) | payer OTHER ==
[~2025-03-20] VITALS: Ht 172.7 cm; Wt 80.7 kg
[~2025-03-20 11:07] MED LIST changes: +PRED10TA23 PO
--- NOTE | 2025-03-20 11:17 | NUR ---
LEVEL 2 TRAUMA ACTIVATED
[2025-03-20 11:21] VITALS: BP 143/75; RESP 16; TEMP 97.8
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
[2025-03-20 11:45] VITALS: PULSE 87; O2SAT 98
[2025-03-20 11:47] LABS: IMMATURE GRANULOCYTE ABSOLUTE 0.03 K/uL (0-1); NUCLEATED RED BLOOD CELLS 0.0 % (0.0-0.19); PLATELET COUNT (AUTO) 126 K/uL (130-400); RED BLOOD CELL COUNT(AUTO) 4.67 MIL/uL (4.50-6.20); RED CELL DISTRIBUTION WIDTH 13.0 % (11.0-15.5); WHITE BLOOD COUNT (AUTO) 6.1 K/uL (4.8-10.8)
[2025-03-20 11:52] LABS: CREATININE 1.3 mg/dL (0.5-1.3); GLOMERULAR FILTR. RATE CALC 55.0 mL/min (>90); GLUCOSE,RANDOM 93.0 mg/dL (70-105); SODIUM SERUM 138.0 mmol/L (136-145); UREA NITROGEN, BLOOD 21.0 mg/dL (7-18)
--- NOTE | 2025-03-20 12:21 | NUR ---
SEE NURSING NOTES ON TRAUMA FLOWSHEET
[2025-03-20] MEDS: MIDAZOLAM 50MG-0.9% NS 50ML 50 ML IV SCH (12:43)
--- NOTE | 2025-03-20 12:45 | HMCIMG ---
STUDY: X-RAY OF THE CHEST, 1 VIEW HISTORY: Cough; endotracheal tube in situ. TECHNIQUE: A single frontal view of the chest is submitted for interpretation. COMPARISON: None provided. FINDINGS: Pulmonary guerrier: No pulmonary infiltrates or nodules are seen. Symmetrical aeration is noted. No pneumothorax or pleural effusion is identified. Cardiac silhouette: Cardiac silhouette is within normal limits. Unfolding of the aorta with aortic arch calcification is noted. Mediastinum and sheldon: Mediastinal contours are within normal limits. The right hilum appears prominent, likely vascular in origin. No definite mediastinal widening is seen. Osseous structures: Limited evaluation of the ribcage and thoracic spine reveals no acute abnormality. Miscellaneous: An endotracheal tube is in situ with its tip approximately 2 cm above the level of the kameron. Costophrenic angles are clear bilaterally. There is no free air seen under the diaphragms. IMPRESSION: * Endotracheal tube in situ with tip approximately 2 cm above the kameron. * Unfolding and calcification of the aortic arch, compatible with atherosclerotic change. * Prominent right hilum, likely vascular; no acute pulmonary infiltrate, pleural effusion, or pneumothorax. /[place]
[2025-03-20] MEDS: LACTATED RINGERS 1000ML 1,000 ML IV ONE (13:01)
[2025-03-20] MEDS: MIDAZOLAM 50MG-0.9% NS 50ML 50 ML IV ONE (13:02)
--- NOTE | 2025-03-20 13:53 | EKG ---
[facility] Test Date: 2025-03-20 Test Time: 12:01:21 Pat Name: CRIS TRUJILLO Department: ED Room: Gender: M Laboratory Supervisor: [id number] : 1940 Requested By: GODWIN ABAD Order Number: [id number] Reading MD: Kyle Cabrera Measurements Intervals Simpson Rate: 66 P: 35 FL: 206 QRS: 86 QRSD: 153 T: 58 QT: 460 QTc: 483 Interpretive Statements Sinus rhythm IVCD, consider RBBB Compared to ECG 02/23/2018 07:44:40 Sinus bradycardia no longer present Myocardial infarct finding no longer present Electronically Signed On 03-20-2025 19:05:55 OPHTHALMIC ASSISTANT by Kyle Cabrera Please click the below link to view image of tracing.
== END 2025-03-20 13:30 | disposition short-term general hospital (02) ==
LOC: EDH 11:07
DX: T20.00XA Burn of unspecified degree of head, face, and neck, unspecified site, initial encounter (principal); T20.02XA Burn of unspecified degree of lip(s), initial encounter; I10 Essential (primary) hypertension; Z86.73 Personal history of transient ischemic attack (TIA), and cerebral infarction without residual deficits; Z90.49 Acquired absence of other specified parts of digestive tract; Z79.52 Long term (current) use of systemic steroids; Z46.82 Encounter for fitting and adjustment of non-vascular catheter; W40.1XXA Explosion of explosive gases, initial encounter; Y93.89 Activity, other specified; Y92.89 Other specified places as the place of occurrence of the external cause; Y99.8 Other external cause status
CPT/HCPCS: 99291; 31500; 96365; 80048; 71045; 85025; 36415; 90714; 90471; 93005; J3010; J0690; J3490 ×2; J2704; J2250; 94002